=== PATIENT | male | born 1990 | race Caucasian/White ===

== ENCOUNTER 2019-06-13 14:50 | Emergency (ER) | payer SELFPAY ==
[2019-06-13 14:55] VITALS: BP 166/108; PULSE 135; RESP 22; TEMP 36.7; O2SAT 100
[2019-06-13 15:08] VITALS: PULSE 124
--- NOTE | 2019-06-13 15:10 | ED.GENADULT ---
HPI - General Adult General Chief complaint: Unspecified Stated complaint: etoh detox Time Seen by Provider: 06/13/19 15:00 History of Present Illness HPI narrative: Patient presents with his mother for alcohol withdrawal. He last drank 3 days ago. He usually drinks at least one fifth of whiskey. 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 He also smokes cigarettes and marijuana does LSD and ecstasy and mushrooms. He has only been to 4 [employer] meetings in the past. He suspects there may be underlying depression. He has not had seizures in the past just tremors with his alcohol withdrawal. Onset (ago): day(s) Severity: severe Related Data Home Medications Medication Instructions Recorded Confirmed No Home Medications 06/13/19 06/13/19 Allergies Allergy/AdvReac Type Severity Reaction Status Date / Time No Known Allergies Allergy Verified 06/13/19 14:59 Review of Systems Review of Systems: Narrative: CONSTITUTIONAL: Denies fever, chills, or sweats. EYES: Denies visual changes, redness, or discharge. ENT: Denies rhinorrhea, congestion, sore throat, or otalgia. CARDIOVASCULAR: Denies chest pain, palpitations, or edema. RESPIRATORY: Denies cough or dyspnea. GASTROINTESTINAL: Denies abdominal pain, nausea, vomiting, or diarrhea. GENITOURINARY: Denies dysuria or hematuria. SKIN: Denies rash or itching. MUSCULOSKELETAL: Denies back pain, joint pain, or myalgia. NEUROLOGIC: Denies headache, numbness, or weakness. PSYCHIATRIC: Denies anxiety or depression. All systems reviewed & are unremarkable except as noted in HPI and below PMFSH Past Medical History Medical History Inguinal hernia Surgical History Surgical History (Updated 06/13/19 @ 15:21 by Amarilys Block MD) History of hernia surgery Social History Social History (Updated 06/13/19 @ 15:21 by Amarilys Block MD) Smoking status: Current every day smoker Alcohol intake: current Substance use: current Substance use type: marijuana and hallucinogens Exam Narrative: Exam Narrative: GENERAL: Well-appearing, well-nourished, shaking, and long unkempt hair. HEAD: Normocephalic, atraumatic. EYES: PERRLA and EOMI. ENT: Nares clear, no rhinorrhea or epistaxis. Mucous membranes moist. NECK: Supple. CHEST: Clear to auscultation. No respiratory distress. HEART: Regular rate and rhythm. No murmur heard. Normal peripheral pulses. ABDOMEN: Soft, nontender, nondistended, normal active bowel sounds. EXTREMITIES: Normal range of motion. No edema. SKIN: Warm, dry, reddish rash on upper chest in circular fashion. NEURO: No focal deficits. Alert and oriented x3. PSYCH: Normal mood and affect. Const: General: no acute distress and alert Orientation/consciousness: patient oriented x3 HENMT: Head: normal to inspection Course Course Emergency Course: Patient started shaking again at time of discharge. He was only shaking with his arms not his head did not appear to be real tremors. He was given 0.5 of Ativan IV before discharge. Then his mother wanted a prescription for Ativan outpatient which I had not said I was going to give. His blood level indicated that he was still intoxicated and not likely to be in withdrawal. Vital Signs Vital signs: Vital Signs Temperature 98.0 F 06/13/19 14:55 Pulse Rate 135 H 06/13/19 14:55 Respiratory Rate 22 H 06/13/19 14:55 Blood Pressure 166/108 H 06/13/19 14:55 Pulse Oximetry 100 06/13/19 14:55 Temperature 98.0 F 06/13/19 14:55 Pulse Rate 98 06/13/19 16:50 Respiratory Rate 14 06/13/19 16:50 Blood Pressure 151/87 H 06/13/19 16:50 Pulse Oximetry 100 06/13/19 16:50 Medical Decision Making Vital Signs Vital Signs: Vital Signs Temperature 98.0 F 06/13/19 14:55 Pulse Rate 135 H 06/13/19 14:55 Respiratory Rate 22 H 06/13/19 14:55 Blood Pressure 166/108 H 06/13/19 14:55 Pulse Oximetry 1
[2019-06-13 15:18] LABS: Basophils Absolute Auto 0.1 K/mm3 (0.0-0.1); Basophils Percent Auto 0.8 % (0.2-1.2); Eosinophils Absolute Auto 0.1 K/mm3 (0-0.3); Eosinophils Percent Auto 0.6 % (0-4.4); Hematocrit 49.2 % (42.0-52.0); Hemoglobin 16.6 g/dL (14.0-18.0); Immature Granulocyte Absolute 0.02 K/mm3 (0.00-0.031); Immature Granulocyte Percent A 0.3 % (0-0.5); Immature Platelet Fraction Pct 3.1 % (0.9-11.2); Lymphocytes Absolute Auto 1.57 K/mm3 (0.9-3.2); Lymphocytes Percent Auto 19.8 % (18.3-44.2); Mean Corpuscular HGB Conc 33.7 g/dl (32-36); Mean Corpuscular Volume 85.9 fl (80-100); Mean Platelet Volume 9.5 fl (7.4-10.4); Monocytes Absolute Auto 0.5 K/mm3 (0.1-0.6); Monocytes Percent Auto 6.2 % (2.6-8.5); Neutrophils Absolute Auto 5.7 K/mm3 (1.3-6.7); Neutrophils Percent Auto 72.3 % (45.5-73.1); Platelet Count Result 81 k/mm3 (150-375); Red Blood Count 5.73 M/mm3 (4.6-6.20); Red Cell Distribution Width 13.1 % (11.5-14.5); White Blood Count 7.9 K/mm3 (4.5-10.0)
[2019-06-13 15:28] LABS: Alanine Aminotransferase 266 U/L (4-50); Albumin Level 4.8 g/dL (3.5-5.1); Alkaline Phosphatase 122 U/L (38-126); Aspartate Amino Transferase 263 U/L (17-59); Bilirubin,Total 0.6 mg/dL (0.2-1.3); Blood Urea Nitrogen 8 mg/dL (9-20); Calcium 8.7 mg/dL (8.4-10.2); Carbon Dioxide 25 mmol/L (22-30); Chloride 100 mmol/L (98-107); Estimated CRCL calculation 115 ml/min; Estimated Glomerular Filt Rate > 60; Glucose 144 mg/dL (75-110); Potassium 3.7 mmol/L (3.4-5.0); Sodium 139 mmol/L (137-145)
[2019-06-13] MEDS: LORAZEPAM INJ 2 MG/ML VIAL 1 MG IV PUSH (15:29)
[2019-06-13 15:30] LABS: Ethanol 161 mg/dL (<10)
--- NOTE | 2019-06-13 16:27 | ECG_ITS ---
Measurements Intervals [place] Rate: 112 P: 76 MI: 108 QRS: 59 QRSD: 94 T: 65 QT: 306 QTc: 419 Interpretive Statements SINUS TACHYCARDIA WITH SHORT MI INTERVAL INCOMPLETE RIGHT BUNDLE BRANCH BLOCK BASELINE ARTIFACT- V3-V4 ABNORMAL ECG Electronically Signed On 06-13-2019 16:31:07 CDT by Leif Alcala D.O.
[2019-06-13 16:50] VITALS: BP 151/87; PULSE 98; RESP 14; O2SAT 100
[2019-06-13 16:58] LABS: Amphetamine Screen Urine Negative (Negative); Barbiturate Screen Urine Negative (Negative); Benzodiazepines Screen Urine Negative (Negative); Cannabinoid Screen Urine Positive (Negative); Cocaine Screen Urine Negative (Negative); Methadone Screen Urine Negative (Negative); Opiate Screen Urine Negative (Negative); Phencyclidine Screen Urine Negative (Negative)
[2019-06-13] MEDS: LORAZEPAM INJ 2 MG/ML VIAL 0.5 MG IV PUSH (18:16)
== END 2019-06-13 18:58 | disposition home or self-care (01) ==
PROVIDERS: Emergency Provider Emergency Medicine
DX: F10.230 Alcohol dependence with withdrawal, uncomplicated (principal); B36.0 Pityriasis versicolor; Y90.6 Blood alcohol level of 120-199 mg/100 ml; F17.210 Nicotine dependence, cigarettes, uncomplicated; R00.0 Tachycardia, unspecified; I45.10 Unspecified right bundle-branch block
CPT/HCPCS: 36415; 80053; 80307; 85025; 85055; 93005; 96365; 96366; 96375; 96376; 99284; J2060; J3411; J3475; J7121

== ENCOUNTER 2019-07-21 17:22 | Emergency (ER) | payer SELFPAY ==
[2019-07-21 17:23] VITALS: BP 163/94; PULSE 107; RESP 18; TEMP 37.7; O2SAT 100
--- NOTE | 2019-07-21 17:25 | ECG_ITS ---
Measurements Intervals [place] Rate: 94 P: 50 [place]: 127 QRS: 29 QRSD: 101 T: 77 QT: 346 QTc: 433 Interpretive Statements SINUS RHYTHM WITH SINUS ARRHYTHMIA NONSPECIFIC ST ELEVATION- ANT/INF LEADS BORDERLINE ECG Electronically Signed On 07-22-2019 6:54:58 CDT by Leif Alcala D.O.
--- NOTE | 2019-07-21 17:50 | ED.ALCOHOL ---
HPI - Alcohol General Chief Complaint: Alcohol <VITALIY Nicholson Last Filed: 07/21/19 18:24> Stated Complaint: ETOH withdrawal <VITALIY Nicholson Last Filed: 07/21/19 18:24> Time Seen by Provider: 07/21/19 17:24 <VITALIY Nicholson Last Filed: 07/21/19 18:24> Source: patient, family and EMS <VITALIY Nicholson Last Filed: 07/21/19 18:24> Mode of arrival: ambulatory <VITALIY Nicholson Last Filed: 07/21/19 18:24> Limitations: no limitations <VITALIY Nicholson Last Filed: 07/21/19 18:24> History of Present Illness HPI narrative: Patient is a 28-year-old male who presents to emergency department for evaluation of having said he just wants it all to and patient with history of alcohol abuse noting that he consumed whiskey today. Patient also notes using psychedelic drugs and cocaine. Patient notes last having used LSD a few days prior. Patient denies injury or trauma. Patient denies recent illness. Patient has been in the hospital recently for alcohol abuse. Patient notes that he had gone to some AA meetings but had a relapse in the last week. Patient denies any current vomiting diarrhea. Patient has mild discomfort of the chest. Patient per EMS noted that he wanted to end it all and was brought in due to concern for suicidal ideation <VITALIY Nicholson Last Filed: 07/21/19 18:24> Related Data Home Medications: Home Medications Medication Instructions Recorded Confirmed No Home Medications 06/13/19 06/13/19 <VITALIY Nicholson Last Filed: 07/21/19 18:24> Allergies/Adverse Reactions: Allergies Allergy/AdvReac Type Severity Reaction Status Date / Time No Known Allergies Allergy Verified 06/13/19 14:59 <VITALIY Nicholson Last Filed: 07/21/19 18:24> Review of Systems Review of Systems: All systems reviewed & are unremarkable except as noted in HPI and below <VITALIY Nicholson Last Filed: 07/21/19 18:24> PMF Past Medical History Medical History: Medical History Inguinal hernia <Gucci Lees PA-C - Last Filed: 07/21/19 18:24> Surgical History Surgical History: Surgical History History of hernia surgery <Gucci Lees PA-C - Last Filed: 07/21/19 18:24> Social History Social History: Social History Smoking status: Current every day smoker Alcohol intake: current Substance use: current Substance use type: marijuana and hallucinogens Gender identity (if verbalized by the patient): Male <Gucci Lees PA-C - Last Filed: 07/21/19 18:24> Exam Narrative: Exam Narrative: GENERAL: Well-appearing, well-nourished, and in no acute distress. HEAD: Normocephalic, atraumatic. EYES: PERRLA and EOMI. ENT: Nares clear, no rhinorrhea or epistaxis. Mucous membranes moist. Oropharynx without tonsillar hypertrophy exudate or other lesions. NECK: Supple. No adenopathy or masses. CHEST: Clear to auscultation. No respiratory distress. No wheezes rales or rhonchi HEART: Regular rate and rhythm. No murmur heard. Normal peripheral pulses. ABDOMEN: Soft, nontender, nondistended EXTREMITIES: Normal range of motion. No edema. SKIN: Warm, dry, no rash. NEURO: No focal deficits. Alert and oriented x3. Cranial nerves II through XII grossly intact PSYCH: Normal mood and affect. <Gucci Lees PA-C - Last Filed: 07/21/19 18:24> Course Reevaluation(s) Reevaluation #1: Assumed care from Guerrero Lees and discharge the patient. At the time he denied any suicidal ideation. He said he was just joking. I discharged him into the care of his mother. He has a psych appointment in July. She said they also need a counselor, but I told her we did not have one on-call she will have to find he
[2019-07-21] MEDS: SODIUM CHLORIDE 0.9% IV 1,000 ML 999 ML IV CONT (17:53)
[2019-07-21 18:10] LABS: Basophils Absolute Auto 0.1 K/mm3 (0.0-0.1); Basophils Percent Auto 0.7 % (0.2-1.2); Eosinophils Percent Auto 0.4 % (0-4.4); Hematocrit 51.4 % (42.0-52.0); Hemoglobin 18.3 g/dL (14.0-18.0); Immature Granulocyte Absolute 0.02 K/mm3 (0.00-0.031); Immature Granulocyte Percent A 0.2 % (0-0.5); Lymphocytes Absolute Auto 4.92 K/mm3 (0.9-3.2); Mean Corpuscular HGB Conc 35.6 g/dl (32-36); Mean Corpuscular Hemoglobin 30.2 pg (26-34); Monocytes Absolute Auto 0.7 K/mm3 (0.1-0.6); Monocytes Percent Auto 6.5 % (2.6-8.5); Neutrophils Absolute Auto 4.5 K/mm3 (1.3-6.7); Neutrophils Percent Auto 44.2 % (45.5-73.1); Platelet Count Result 223 k/mm3 (150-375); Red Blood Count 6.05 M/mm3 (4.6-6.20); Red Cell Distribution Width 12.5 % (11.5-14.5); White Blood Count 10.2 K/mm3 (4.5-10.0)
[2019-07-21] MEDS: LORAZEPAM INJ 2 MG/ML VIAL 1 MG IV PUSH (18:17)
[2019-07-21 18:27] LABS: INR 0.9
[2019-07-21 18:28] LABS: Partial Thromboplastin Time 23.8 SECONDS (22.3-36.8)
[2019-07-21 18:28] LABS: Alanine Aminotransferase 23 U/L (4-50); Albumin Level 4.9 g/dL (3.5-5.1); Alkaline Phosphatase 93 U/L (38-126); Aspartate Amino Transferase 32 U/L (17-59); Bilirubin,Total 0.3 mg/dL (0.2-1.3); Blood Urea Nitrogen 13 mg/dL (9-20); Calcium 8.9 mg/dL (8.4-10.2); Carbon Dioxide 22 mmol/L (22-30); Chloride 109 mmol/L (98-107); Creatine Kinase 120 U/L (55-170); Estimated CRCL calculation 100 ml/min; Estimated Glomerular Filt Rate > 60; Glucose 93 mg/dL (75-110); Magnesium 1.9 mg/dL (1.6-2.3); Phosphorus 3.4 mg/dL (2.5-4.5); Potassium 3.8 mmol/L (3.4-5.0); Sodium 147 mmol/L (137-145)
[2019-07-21 18:40] VITALS: BP 107/54; PULSE 96; RESP 20; O2SAT 96
[2019-07-21 18:51] LABS: Ethanol 356 mg/dL (<10)
[2019-07-21 20:30] VITALS: BP 117/90; PULSE 108; RESP 20; O2SAT 100
[2019-07-21 20:45] LABS: Add Urine Microscopic? YES; Amorphous Sediment Urine Moderate; Appearance Urine Cloudy (Clear); Bilirubin Urine Negative (Negative); Blood Urine Negative (Negative); Color Urine Yellow (Yellow); Glucose Urine UA Negative (Negative); Ketones Urine Negative (Negative); Leukocyte Esterase Ur Negative LEU/UL (Negative); Nitrate Urine Negative (Negative); Protein Urine 1+ mg/dL (Negative); RBC Urine 0-2 /hpf (0-2); Specific Grav Ur 1.019 (1.001-1.035); Squamous Epithelial Cell Urine Rare /hpf (Few); Urobilinogen Urine Negative mg/dL (<2.0); WBC Urine 0-3 /hpf
[2019-07-21 21:02] LABS: Amphetamine Screen Urine Negative (Negative); Barbiturate Screen Urine Negative (Negative); Benzodiazepines Screen Urine Negative (Negative); Cannabinoid Screen Urine Positive (Negative); Cocaine Screen Urine Negative (Negative); Methadone Screen Urine Negative (Negative); Opiate Screen Urine Negative (Negative); Phencyclidine Screen Urine Negative (Negative)
[2019-07-21 21:30] VITALS: BP 120/86; PULSE 90; RESP 20; O2SAT 100
== END 2019-07-21 22:00 | disposition home or self-care (01) ==
PROVIDERS: Emergency Medicine Emergency Medical Services; Emergency Provider Emergency Medicine
DX: F19.10 Other psychoactive substance abuse, uncomplicated (principal); E87.0 Hyperosmolality and hypernatremia; D75.1 Secondary polycythemia
CPT/HCPCS: 36415; 80053; 80307; 81001; 82550; 83735; 84100; 84443; 85025; 85610; 85730; 93005; 96361; 96365; 96375; 99284; J2060; J3411; J3475; J7030; J7120